=== PATIENT | male | born 1945 | race Caucasian/White ===

== ENCOUNTER 2022-12-20 09:13 | Day surgery (SDC) | payer MEDICARE, OTHER ==
--- NOTE | 2022-12-19 13:46 | HP ---
DATE OF SURGERY: 12/20/2022 HISTORY OF PRESENT ILLNESS: The patient is a 77-year-old male who presents with complaints of a right inguinal hernia. He states he seen a bulge and it hurts in that location. It does look incarcerated and tender on exam today. He does have some lower extremity edema and some lower pelvis edema. PAST MEDICAL HISTORY: Atrial fibrillation, hypertension, cirrhosis, kidney disease, prostate cancer, hernia. PAST SURGICAL HISTORY: Appendectomy. Prostatectomy. Pacemaker/defibrillator. ALLERGIES: NKDA. ADHESIVE TAPE. MEDICATIONS: Eliquis, bumetanide, amlodipine, Lasix, lisinopril, Tamsulosin, atorvastatin, Xifaxan. FAMILY HISTORY: Esophageal cancer. SOCIAL HISTORY: Former smoker. REVIEW OF SYSTEMS: CONSTITUTIONAL: Denies fever or chills. CHEST: Denies shortness of breath. CVS: Denies chest pain. ABDOMEN: Denies abdominal pain. PHYSICAL EXAMINATION: GENERAL: No acute distress. CHEST: Nonlabored. No shortness of breath. CVS: Regular rate and rhythm. ABDOMEN: Soft. IMPRESSION: Moderately enlarged right inguinal hernia. PLAN: Right inguinal hernia repair with mesh with Dr. Nikhil Minor. As dictated by Anna Saez NP.
[~2022-12-20 09:13] MED LIST: Sensorcaine 0.25% 10 ML ONE
[2022-12-20] MEDS ORDERED: EXPAREL 133 MG/10 ML VIAL IJ ONE (09:14)
[2022-12-20] MEDS ORDERED: Lactated Ringers 1,000 ML IV ONE (09:42)
[2022-12-20] MEDS ORDERED: CEFAZOLIN 2 GM-D5W BAG** 2 GM/50 ML ML IV ONE (09:42)
[2022-12-20] MEDS ORDERED: Lactated Ringers 1,000 ML IV SCH (10:00)
[2022-12-20] MEDS ORDERED: CEFAZOLIN 2 GM-D5W BAG** 2 GM/50 ML ML IV SCH (10:00)
[2022-12-20 10:59] LABS: ALBUMIN 2.8 g/dL (3.5-5.0); ALKALINE PHOSPHATASE 156 U/L (38-126); ANION GAP 3.3 MEQ/L (5-15); CHLORIDE 111 mmol/L (98-107); Calcium 8.8 mg/dL (8.4-10.2); Carbon Dioxide 26 mmol/L (22-30); Creatinine 1 1.23 mg/dL (0.66-1.25); EST GLOMERULAR FILTRATION RATE > 60.0 ML/MIN; Glucose 89 mg/dL (74-106); SGOT/AST 56 U/L (17-59); SGPT/ALT 22 U/L (0-50); SODIUM 135 mmol/L (137-145)
[2022-12-20] MEDS ORDERED: Xylocaine-Mpf 2% 5 Ml Vial ONE (12:01)
[2022-12-20] MEDS ORDERED: Amidate 20 MG/10 ML IV ONE (12:01)
[2022-12-20] MEDS ORDERED: Quelicin Fliptop 200 MG/10 ML ONE (12:01)
[2022-12-20] MEDS ORDERED: Zofran 4 MG/2 ML VIAL ONE (12:01)
[2022-12-20] MEDS ORDERED: SUBLIMAZE 100 MCG/2 ML ONE ×2 (12:02→13:38)
[2022-12-20] MEDS ORDERED: OFIRMEV 100 ML IV ONE (12:17)
[2022-12-20] MEDS ORDERED: Pre-Attached Lta Kit TP ONE (12:17)
[2022-12-20] MEDS ORDERED: Sensorcaine 0.25% 10 ML ONE (12:17)
[2022-12-20] MEDS ORDERED: Ephedrine Sulfate 50 MG/ML ONE (12:43)
[2022-12-20] MEDS ORDERED: DEXMEDETOMIDINE 80 MCG/20ML-NS IV ONE (12:58)
--- NOTE | 2022-12-20 14:53 | OP ---
SURGERY DATE/TIME: 12/20/2022 1221 PREOPERATIVE DIAGNOSIS: Right inguinal hernia. POSTOPERATIVE DIAGNOSIS: Right inguinal hernia. PROCEDURE: Right inguinal herniorrhaphy primary open. No mesh. SURGEON: Nikhil Minor M.D. ANESTHESIA: General. COMPLICATIONS: None. CONDITION: Stable. INDICATION: A patient with symptomatic hernia, large bulge right inguinal. DESCRIPTION OF PROCEDURE: Taken to surgery. Routine prep and drape. Time out performed. Curvilinear incision. 0.25% Marcaine infiltrated. External oblique opened. Cord skeletonized. There is a large sac measuring up to 2 inches and extended down to scrotum. It was peeled off of the testicle. It was peeled off the vas and vessels. Back at the internal ring clamp, it was tied. Internal ring closed with figure-of-8 suture #0 Prolene, this looked very well and hernia basically looked repaired. There was a little reinforcement down at the Best's ligament area. The cord was laid back in natural position. External oblique closed with 0 Vicryl. Bj fascia closed with 3-0 Vicryl. Skin closed with 4-0 Vicryl. Steri-Strips applied. Sterile dressing applied. The patient tolerated the procedure satisfactorily.
[2022-12-20 15:12] VITALS: BP 114/47; PULSE 60; O2SAT 92
[2022-12-20] MEDS ORDERED: NORCO 5/325 MG PO PRN (15:13)
== END 2022-12-20 15:40 ==
LOC: SDC 09:13
PROVIDERS: ATTEND Surgery
DX: K40.90 Unilateral inguinal hernia, without obstruction or gangrene, not specified as recurrent (principal); Z85.46 Personal history of malignant neoplasm of prostate
CPT/HCPCS: 36415; 64486; 76937; 76942; 80053; 99100; J0330; J0690; J2405; J3010; A9270-GY

== ENCOUNTER 2023-01-21 02:42 | Emergency (ER) | payer MEDICARE, OTHER ==
[2023-01-21 03:21] LABS: Absolute Neutrophil Ct (ANC) 6.33 x10^3/uL (1.4-6.9); BASOPHIL % 0.8 % (0.0-0.4); Basophil (Absolute #) 0.08 x10^3/uL (0-0.4); Eosinophil % 2.5 % (0.00-5.0); Eosinophil (Absolute #) 0.24 x10^3/uL (0-0.5); Hematocrit 35.7 % (42-50); Hemoglobin 11.9 g/dL (12.5-18.0); IMMATURE GRAN # 0.02 x10^3u/L (0.00-0.03); IMMATURE GRAN % 0.2 % (0.00-0.4); Lymphocyte (Absolute #) 1.82 x10^3/uL (1.0-4.6); Lymphocytes % 18.7 % (24.0-44.0); Mean Cell Volume 99.4 fL (78-100); Mean Corpuscular Hemoglobin 33.1 pg (26-32); Mean Corpuscular Hgb Concent. 33.3 g/dL (32-36); Mean Platelet Volume 10.3 fL (7.5-11.0); Monocyte (Absolute #) 1.26 x10^3/uL (0.0-1.3); Monocytes % 12.9 % (0.0-12.0); Neutrophil % 64.9 % (36.0-66.0); Platelet Count 203 x10^3/uL (150-450); Red Blood Count 3.59 x10^6/uL (4.1-5.6); White Blood Count 9.8 x10^3/uL (4.0-10.5)
--- NOTE | 2023-01-21 03:33 | ERPHSYRPT ---
- History of Present Illness Source: patient, EMS Exam Limitations: no limitations, other (Limited and poor snf history) Patient Subjective Stated Complaint: Pt reports he started having some swelling approx one week ago and it has continuously worsened. Denies any shortness of breath or pain. Triage Nursing Assessment: Pt ambulated from EMS to ED cot with assistance x2 without difficulty. Alert and oriented x3. No apparent respiratory distress. Skin w/p/d. Bilateral lower extremity edema all the way up bilateral upper legs +4 pitting edema. Abdomen firm, round, nontender with pitting edema. Bowel sounds hypoactive in all quads. Bilateral flank firm, pitting edema. No seeping observed at time of triage. Crackles throughout bilateral lungs. Right inguinal incision from previous surgery with steri strips falling off, incision dry and intact without any drainage or redness. Physician History: 77 yo wm from a local snf w lower extremity edema x 10 days. Pt denies dyspnea/chest pain/PND/orthopnea/fever/cough/melena/hematochezia. He entered the snf for rehab after R inguinal hernia surgery in December. Pt states that he is having good BM's and ambulates w a walker. He is a full code. Timing/Duration: other (10 days) Severity: moderate Modifying Factors: Improves With: nothing Associated Symptoms: denies symptoms Allergies/Adverse Reactions: adhesive tape Allergy (Verified 12/20/22 09:59) solifenacin [From Vesicare] Allergy (Verified 01/21/23 02:55) Home Medications: Amlodipine Besylate [Norvasc] 10 mg PO DAILY 11/29/22 [History] Apixaban [Eliquis 5 mg Tablet] 5 mg PO BID 11/29/22 [History] Atorvastatin Calcium [Lipitor] 10 mg PO DAILY 11/29/22 [History] Bumetanide 1 mg [Bumex 1 mg] 2 mg PO DAILY 11/29/22 [History] Lisinopril 5 mg [Zestril 5 MG] 5 mg PO DAILY 11/29/22 [History] Tamsulosin HCl 0.4 mg [Flomax 0.4 MG] 0.4 mg PO DAILY 11/29/22 [History] Furosemide 10 mg/ml [Lasix 10 MG/ML ORAL SOLUTION] 4 ml PO DAILY 01/21/23 [History] Hydrocodone/Acetaminophen [Hydrocodone-Acetamin 5-325 mg] 1 tab PO Q4H 01/21/23 [History] Melatonin 10 mg PO DAILY 01/21/23 [History] Hx Tetanus, Diphtheria Vaccination/Date Given: (unknown) Hx Influenza Vaccination/Date Given: Yes Hx Pneumococcal Vaccination/Date Given: (unknown) Travel Risk - International Travel Have you traveled outside of the country in past 3 weeks: No - Coronavirus Screening Are you exhibiting any of the following symptoms?: No Close contact with a COVID-19 positive Pt in past 14-21 Days: No - Vaccine Status Have you recieved a Covid-19 vaccination: Yes Wreath Machine Tender: Moderna - Vaccination Dates Date of 2cond Vaccination (if applicable): 02/02/2021 - Review of Systems Constitutional: No Symptoms Eyes: No Symptoms Ears, Nose, & Throat: No Symptoms Respiratory: No Symptoms Cardiac: No Symptoms Abdominal/Gastrointestinal: No Symptoms Genitourinary Symptoms: No Symptoms Skin: No Symptoms Neurological: No Symptoms Psychological: No Symptoms Endocrine: No Symptoms Hematologic/Lymphatic: No Symptoms Immunological/Allergic: No Symptoms - Past Medical History Pertinent Past Medical History: Yes Neurological History: No Pertinent History ENT History: No Pertinent History Cardiac History: Arrhythmia, Congestive Heart Failure, Hypertension Respiratory History: CHF, Other Endocrine Medical History: No Pertinent History Musculoskeletal History: Other GI Medical History: Cirrhosis History: Renal Disease Psycho-Social History: No Pertinent History Male Reproductive Disorders: Prostate Cancer Other Medical History: R KNEE ARTHROSCOPY, A-FIB - Past Surgical History Past Surgical History: Yes Neuro Surgical History: No Pertinent History Cardiac: Pacemaker Respiratory: No Pertinent History Gastrointestinal: Appendectomy Genitourinary: No Pertinent History Musculoskeletal: No Pertinent History Male Surgical History: Prostate Surgery - Social History Smoking Status: Former smoker How long have you smoked: 50 years Exposure to second hand smoke: No Drug Use: none Patient Lives Alone: No ([facility]) Significant Family History: no pertinent family hx - Nursing Vital Signs Nursing Vital Signs: Initial Vital Signs Temperature 98.7 F 01/21/23 02:42 Pulse Rate 64 01/21/23 02:42 Respiratory Rate 24 01/21/23 02:42 Blood Pressure 105/45 01/21/23 02:42 O2 Sat by Pulse Oximetry 95 01/21/23 02:42 Pain Scale Pain Intensity 0 WNL - Physical Exam General Appearance: no apparent distress Eye Exam: PERRL/EOMI, eyes nml inspection Ears, Nose, Throat Exam: normal ENT inspection, TMs normal, pharynx normal, moist mucous membranes Neck Exam: normal inspection, non-tender, supple, full range of motion, No meningismus, No Brudzinski, No Kernig's Respiratory Exam: airway intact, diminished breath sounds (Decreased breath sound L base), No respiratory distress Cardiovascular Exam: other (Paced) Gastrointestinal/Abdomen Exam: soft, normal bowel sounds, No tenderness Back Exam: normal inspection, normal range of motion Extremity Exam: swelling (2+ lower extremity edema) Neurologic Exam: alert, oriented x 3, cooperative, international travel consultant II-XII nml as tested, normal mood/affect, sensation nml Skin Exam: normal color, warm, dry Lymphatic Exam: No adenopathy SpO2 Interpretation: normal SpO2: 95 O2 Delivery: Room Air - Course Nursing assessment & vital signs reviewed: Yes EKG Interpreted by Me: RATE (Rate 64/Afib/PVC's/IVCD/No acute ST segment changes) - CT Exams Chest CT Interpretation: Tele-radiologist Report (B pleural effusions/Anasarc a/ascites) Ordered Tests: Active Orders 24 hr Category Date Time Status EKG-ER Only STAT Care 01/21/23 03:05 Active CHEST 1 VIEW (PORTABLE) Stat Exams 01/21/23 03:05 Taken CHEST WITHOUT CONTRAST [CT] Stat Exams 01/21/23 03:36 Taken CBC W DIFF Stat Lab 01/21/23 03:18 Completed CMP Stat Lab 01/21/23 03:18 Completed NT PRO BNPII Stat Lab 01/21/23 03:18 Completed PROTIME WITH INR Stat Lab 01/21/23 03:18 Completed PTT Stat Lab 01/21/23 03:18 Completed TROPONIN Q4H Lab 01/21/23 03:18 Completed TROPONIN Q4H Lab 01/21/23 06:44 Received TROPONIN Q4H Lab 01/21/23 11:15 Ordered Medication Summary Discontinued Medications Generic Name Dose Route Start Last Admin Trade Name Freq PRN Reason Stop Dose Admin Furosemide 60 mg 01/21/23 05:28 02/20/23 05:33 Furosemide 40 Mg/4 Ml Vial IV 01/21/23 05:29 60 mg STAT ONE Administration Furosemide Confirm 01/21/23 05:32 Furosemide 40 Mg/4 Ml Vial Administered 01/21/23 05:33 Dose 80 mg .ROUTE .STK-MED ONE Lab/Rad Data: Laboratory Result Diagrams 01/21/23 03:18 01/21/23 03:18 Laboratory Results 01/21/23 01/21/23 01/21/23 Range/Units Unknown 03:18 03:18 WBC (4.0-10.5) x10^3/uL RBC (4.1-5.6) x10^6/uL Hgb (12.5-18.0) g/dL Hct (42-50) % MCV (78-100) fL MCH (26-32) pg MCHC (32-36) g/dL RDW (11.5-14.0) % Plt Count (150-450) x10^3/uL MPV (7.5-11.0) fL Gran % (36.0-66.0) % Immature Gran % (Auto) (0.00-0.4) % Nucleat RBC Rel Count (0.00-0.1) % Eos # (Auto) (0-0.5) x10^3/uL Immature Gran # (Auto) (0.00-0.03) x10^3u/L Absolute Lymphs (auto) (1.0-4.6) x10^3/uL Absolute Monos (auto) (0.0-1.3) x10^3/uL Absolute Nucleated RBC (0.00-0.01) x10^3u/L Lymphocytes % (24.0-44.0) % Monocytes % (0.0-12.0) % Eosinophils % (0.00-5.0) % Basophils % (0.0-0.4) % Absolute Granulocytes (1.4-6.9) x10^3/uL Basophils # (0-0.4) x10^3/uL PT 15.8 H (9.4-12.5) SECONDS INR 1.55 (0.8-3.0) APTT 37.8 H (25.1-36.5) SECONDS Sodium (137-145) mmol/L Potassium (3.5-5.1) mmol/L Chloride (98-107) mmol/L Carbon Dioxide (22-30) mmol/L Anion Gap (5-15) MEQ/L BUN (9-20) mg/dL Creatinine (0.66-1.25) mg/dL Estimated GFR ML/MIN Glucose (74-106) mg/dL Calcium (8.4-10.2) mg/dL Total Bilirubin (0.2-1.3) mg/dL AST (17-59) U/L ALT (0-50) U/L Alkaline Phosphatase (38-126) U/L Troponin I < 0.012 (0.000-0.034) ng/mL NT-Pro-B Natriuret Pep 3560 (<300) pg/mL Serum Total Protein (6.3-8.2) g/dL Albumin (3.5-5.0) g/dL Influenza Type A Ag NEGATIVE (NEGATIVE) Influenza Type B Ag NEGATIVE (NEGATIVE) RSV (PCR) NEGATIVE (Negative) SARS-CoV-2 (PCR) NEGATIVE (NEGATIVE) 01/21/23 01/21/23 Range/Units 03:18 03:18 WBC 9.8 (4.0-10.5) x10^3/uL RBC 3.59 L (4.1-5.6) x10^6/uL Hgb 11.9 L (12.5-18.0) g/dL Hct 35.7 L (42-50) % MCV 99.4 (78-100) fL MCH 33.1 H (26-32) pg MCHC 33.3 (32-36) g/dL RDW 15.0 H (11.5-14.0) % Plt Count 203 (150-450) x10^3/uL MPV 10.3 (7.5-11.0) fL Gran % 64.9 (36.0-66.0) % Immature Gran % (Auto) 0.2 (0.00-0.4) % Nucleat RBC Rel Count 0.0 (0.00-0.1) % Eos # (Auto) 0.24 (0-0.5) x10^3/uL Immature Gran # (Auto) 0.02 (0.00-0.03) x10^3u/L Absolute Lymphs (auto) 1.82 (1.0-4.6) x10^3/uL Absolute Monos (auto) 1.26 (0.0-1.3) x10^3/uL Absolute Nucleated RBC 0.00 (0.00-0.01) x10^3u/L Lymphocytes % 18.7 L (24.0-44.0) % Monocytes % 12.9 H (0.0-12.0) % Eosinophils % 2.5 (0.00-5.0) % Basophils % 0.8 (0.0-0.4) % Absolute Granulocytes 6.33 (1.4-6.9) x10^3/uL Basophils # 0.08 (0-0.4) x10^3/uL PT (9.4-12.5) SECONDS INR (0.8-3.0) APTT (25.1-36.5) SECONDS Sodium 137 (137-145) mmol/L Potassium 3.9 (3.5-5.1) mmol/L Chloride 104 (98-107) mmol/L Carbon Dioxide 26 (22-30) mmol/L Anion Gap 10.8 (5-15) MEQ/L BUN 49 H (9-20) mg/dL Creatinine 3.44 H (0.66-1.25) mg/dL Estimated GFR 18.5 ML/MIN Glucose 103 (74-106) mg/dL Calcium 8.1 L (8.4-10.2) mg/dL Total Bilirubin 1.10 (0.2-1.3) mg/dL AST 22 (17-59) U/L ALT 9 (0-50) U/L Alkaline Phosphatase 125 (38-126) U/L Troponin I (0.000-0.034) ng/mL NT-Pro-B Natriuret Pep (<300) pg/mL Serum Total Protein 5.5 L (6.3-8.2) g/dL Albumin 2.3 L (3.5-5.0) g/dL Influenza Type A Ag (NEGATIVE) Influenza Type B Ag (NEGATIVE) RSV (PCR) (Negative) SARS-CoV-2 (PCR) (NEGATIVE) - Progress Progress Note: 01/21/23 04:07 Nursing note and vital signs reviewed Pt is a full code half-way records reviewed Lab results reviewed and shared w pt CXR interpreted per ER physician Spoke w Dr. Ta, aware of current problems which are chronic and wants to send back to the [facility] Pt[place] MAR from [facility] reviewed 60mg IV Lasix w 100ml of urine output Pt in NAD w stable vital signs during entire stay No food or housing insecurities noted 01/21/23 06:52 01/21/23 06:56 Counseled pt/family regarding: lab results, diagnosis, rad results - Departure Departure Disposition: Extended Care Facility Clinical Impression: Hypoalbuminemia, Anasarca, Ascites, Pleural effusion Condition: Stable Critical Care Time: No Referrals: KELECHI LIM [Primary Care Provider] - Follow up/PCP as directed Instructions: Dependent Edema (DC), Fluid in the Belly (Ascites) (DC) Additional Instructions: Have pt follow up with nephrology and cardiology [facility] for now Return to ER as needed
[2023-01-21 03:41] LABS: ALBUMIN 2.3 g/dL (3.5-5.0); ANION GAP 10.8 MEQ/L (5-15); BILIRUBIN,TOTAL 1.1 mg/dL (0.2-1.3); Calcium 8.1 mg/dL (8.4-10.2); Creatinine 1 3.44 mg/dL (0.66-1.25); EST GLOMERULAR FILTRATION RATE 18.5 ML/MIN; Potassium 3.9 mmol/L (3.5-5.1); Total Protein 5.5 g/dL (6.3-8.2)
[2023-01-21 03:42] LABS: INR 1.55 (0.8-3.0); PROTIME 15.8 SECONDS (9.4-12.5); PTT 37.8 SECONDS (25.1-36.5)
[2023-01-21 03:49] LABS: NT PRO BNPII 3560 pg/mL (<300); TROPONIN < 0.012 ng/mL (0.000-0.034)
[2023-01-21 05:04] VITALS: PULSE 61
[2023-01-21] MEDS ORDERED: Lasix 40 MG/4 ML IV ONE (05:28)
[2023-01-21] MEDS ORDERED: Lasix 40 MG/4 ML ONE (05:32)
[2023-01-21 06:36] LABS: INFLUENZA A NEGATIVE (NEGATIVE); INFLUENZA B NEGATIVE (NEGATIVE); RESPIRATORY SYNCTIAL VIRUS NEGATIVE (Negative); SARS-CoV-2 Xpert Express NEGATIVE (NEGATIVE)
[2023-01-21 06:57] VITALS: O2SAT 95
[2023-01-21 07:03] VITALS: BP 95/49
--- NOTE | 2023-01-21 08:49 | XRAY ---
Indication: Swelling. Anasarca. Comparison: April 18, 2017 Portable chest demonstrates new CT proven moderate bibasilar pleural effusions/atelectasis. Worsening bilateral calcified pleural plaquing. Heart not enlarged with new left pacemaker. Bony thorax intact.
--- NOTE | 2023-01-21 08:49 | XRAY ---
Indication: Abnormal chest x-ray. Cirrhosis. Lower chest swelling. Multiple contiguous axial images obtained through the chest without contrast. Comparison: September 05, 2022 Lungs demonstrate new moderate bilateral pleural effusions with mild bibasilar compressive atelectasis. There remains diffuse scattered bilateral calcified pleural plaquing. Heart not enlarged again with left pacemaker. Aorta remains mildly arteriosclerotic. No pathologic mediastinal lymphadenopathy. Bony thorax intact again with osteopenia and mild degenerative changes throughout the spine. New diffuse anasarca. Limited upper abdomen demonstrates cirrhotic liver with new large incompletely visualized ascites. Impression: 1. Cirrhotic liver with new incompletely visualized ascites and diffuse anasarca. New bilateral pleural effusions without cardiomegaly may be related. 2. Again chronic findings including bilateral calcified pleural plaquing, arteriosclerotic disease, and chronic bony findings. Comment: Preliminary interpretation made by [facility]. No critical discrepancy.
== END 2023-01-21 08:00 | disposition home or self-care (01) ==
LOC: ED 02:42
DX: E88.09 Other disorders of plasma-protein metabolism, not elsewhere classified (principal); R18.8 Other ascites; J90 Pleural effusion, not elsewhere classified; I11.0 Hypertensive heart disease with heart failure; I50.9 Heart failure, unspecified; Z79.01 Long term (current) use of anticoagulants; Z79.891 Long term (current) use of opiate analgesic; Z79.899 Other long term (current) drug therapy
CPT/HCPCS: 0241U; 36000; 36415; 71045; 71250; 80053; 83880; 84484; 85025; 85610; 85730; 93005; 96374; 99284; J1940

== ENCOUNTER 2023-01-21 17:17 | Observation (INO) | payer MEDICARE, OTHER ==
[2023-01-21] MEDS ORDERED: XYLOCAINE 2% Uro-Jet ONE (17:23)
--- NOTE | 2023-01-21 17:23 | ERPHSYRPT ---
- History of Present Illness Time Seen by Provider: 01/21/23 17:20 Source: patient, EMS, [facility]dc records, old records Exam Limitations: no limitations Physician History: This is a 77-year-old white male patient of Dr. Serge Bates who was living at [facility]. Patient was seen in this emergency department earlier today and was sent home on Bumex and Lasix diuretic because of bilateral lower extremity swelling. Work-up was performed. At the fdc, the patient was not passing urine. The fdc attempted placement of a Wills catheter on 2 different occasions and were unsuccessful. Dr. Serge Bates was contacted and she told the nursing staff to attempt a Wills catheter and if they were unsuccessful or if there was no urine output after placing the Wills catheter, to send the patient to the emergency department for further evaluation. Patient denies pain of any kind. He has no abdominal pain, he denies chest pain, he denies shortness of breath. Patient has a history of hypertension and is on Eliquis for atrial fibrillation he has a history of prostate cancer and is status post prostatectomy in the past. He has history of CHF and hyperlipidemia. He is also on Flomax medication. Timing/Duration: today Activites at Onset: none Quality: other (Increasing swelling of the penile foreskin and bilateral lower extremities) Severity of Pain-Max: none Severity of Pain-Current: none Modifying Factors: Improves With: nothing Associated Symptoms: other (Unable to pass urine on his own) Prior abdominal problems: other (Prostatectomy in the past) Sexual intercourse history: non-contributory Allergies/Adverse Reactions: adhesive tape Allergy (Verified 01/21/23 17:26) solifenacin [From Vesicare] Allergy (Verified 01/21/23 17:26) Home Medications: Amlodipine Besylate [Norvasc] 10 mg PO DAILY 11/29/22 [History] Apixaban [Eliquis 5 mg Tablet] 5 mg PO BID 11/29/22 [History] Atorvastatin Calcium [Lipitor] 10 mg PO DAILY 11/29/22 [History] Bumetanide 1 mg [Bumex 1 mg] 2 mg PO DAILY 11/29/22 [History] Lisinopril 5 mg [Zestril 5 MG] 5 mg PO DAILY 11/29/22 [History] Tamsulosin HCl 0.4 mg [Flomax 0.4 MG] 0.4 mg PO DAILY 11/29/22 [History] Furosemide 10 mg/ml [Lasix 10 MG/ML ORAL SOLUTION] 4 ml PO DAILY 01/21/23 [History] Hydrocodone/Acetaminophen [Hydrocodone-Acetamin 5-325 mg] 1 tab PO Q4H 01/21/23 [History] Melatonin 10 mg PO DAILY 01/21/23 [History] Hx Tetanus, Diphtheria Vaccination/Date Given: (unknown) Hx Influenza Vaccination/Date Given: Yes Hx Pneumococcal Vaccination/Date Given: (unknown) Travel Risk - International Travel Have you traveled outside of the country in past 3 weeks: No - Coronavirus Screening Are you exhibiting any of the following symptoms?: No Close contact with a COVID-19 positive Pt in past 14-21 Days: No - Vaccine Status Have you recieved a Covid-19 vaccination: Yes 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[employer] - Vaccination Dates Date of 2cond Vaccination (if applicable): 02/02/2021 - Past Medical History Pertinent Past Medical History: Yes Neurological History: No Pertinent History ENT History: No Pertinent History Cardiac History: Arrhythmia, Congestive Heart Failure, Hypertension Respiratory History: CHF, Other Endocrine Medical History: No Pertinent History Musculoskeletal History: Other GI Medical History: Cirrhosis History: Renal Disease Psycho-Social History: No Pertinent History Male Reproductive Disorders: Prostate Cancer Other Medical History: R KNEE ARTHROSCOPY, A-FIB - Past Surgical History Past Surgical History: Yes Neuro Surgical History: No Pertinent History Cardiac: Pacemaker Respiratory: No Pertinent History Gastrointestinal: Appendectomy Genitourinary: No Pertinent History Musculoskeletal: No Pertinent History Male Surgical History: Prostate Surgery - Social History Smoking Status: Former smoker How long have you smoked: 50 years Exposure to second hand smoke: No Drug Use: none Patient Lives Alone: No ([facility]) Significant Family History: no pertinent family hx - Review of Systems Constitutional: No Symptoms Eyes: No Symptoms Ears, Nose, & Throat: No Symptoms Respiratory: No Symptoms Cardiac: No Symptoms Abdominal/Gastrointestinal: No Symptoms Genitourinary Symptoms: Urinary Retention, Other (Penile foreskin swelling) Musculoskeletal: No Symptoms Skin: No Symptoms Neurological: No Symptoms Psychological: No Symptoms Endocrine: No Symptoms Hematologic/Lymphatic: No Symptoms, Easy Bruising - Nursing Vital Signs Nursing Vital Signs: Initial Vital Signs Temperature 97.4 F 01/21/23 17:21 Pulse Rate 74 01/21/23 17:21 Respiratory Rate 18 01/21/23 17:21 Blood Pressure 98/36 01/21/23 17:21 O2 Sat by Pulse Oximetry 96 01/21/23 17:21 Pain Scale Pain Intensity 0 - Physical Exam General Appearance: no apparent distress, alert Eye Exam: PERRL/EOMI, eyes nml inspection Ears, Nose, Throat Exam: normal ENT inspection, moist mucous membranes Neck Exam: normal inspection, non-tender, supple, full range of motion Respiratory Exam: normal breath sounds, lungs clear, airway intact, No chest tenderness, No respiratory distress Cardiovascular Exam: regular rate/rhythm, normal heart sounds, normal peripheral pulses, edema (Bilateral lower extremity edema from feet to thighs) Gastrointestinal/Abdomen Exam: soft, normal bowel sounds, No tenderness Male Genital Exam: circumcised (With swelling that is significant and retracted penis and the meatus is not readily visualized) Back Exam: normal inspection, normal range of motion, No CVA tenderness, No vertebral tenderness Extremity Exam: normal range of motion, pelvis stable, pedal edema Neurologic Exam: alert (From feet to bilateral thighs), oriented x 3, cooperative, reconnaissance man II-XII nml as tested, normal mood/affect Skin Exam: normal color, warm, dry Lymphatic Exam: No adenopathy SpO2 Interpretation: normal O2 Delivery: Room Air Procedures - Additional Procedures Progress: Wills catheter was attempted by the nursing staff. They then asked me to evaluate this patient he has significant swelling of the remaining foreskin and the meatus is not visualized. Several attempts were made prior to my evaluation. They were unsuccessful. Next we anesthetized the remaining foreskin with 7 cc total of 1% lidocaine plain. This was injected into the foreskin. We then were able to use hemostats to retract the foreskin and the meatus was visualized. We passed a 12 inch Wills catheter which had urine flow. Next, we did pass a 16 coud catheter. There were no complications. The patient taught the procedure well. Ordered Tests: Active Orders 24 hr Category Date Time Status IV Insertion STAT Care 01/21/23 18:32 Active ABDOMEN AND PELVIS W/0 CONTRAS [CT] Stat Exams 01/21/23 18:34 Taken CBC W DIFF Stat Lab 01/21/23 19:05 Completed CMP Stat Lab 01/21/23 19:05 Completed CULTURE,URINE Stat Lab 01/21/23 19:19 Received NT PRO BNPII Stat Lab 01/21/23 19:05 Completed UA W/RFX UR CULTURE Stat Lab 01/21/23 19:19 Completed Transfer Order Routine Transfer 01/21/23 Ordered Medication Summary Discontinued Medications Generic Name Dose Route Start Last Admin Trade Name Michael PRN Reason Stop Dose Admin Lidocaine HCl Confirm 01/21/23 17:23 Lidocaine Hcl 20 Mg/Ml Jelly Uro-Jet Administered 01/21/23 17:24 Dose 200 mg .ROUTE .STK-MED ONE Lidocaine HCl 200 mg 01/21/23 17:41 Lidocaine Hcl 20 Mg/Ml Jelly Uro-Jet TOP 01/21/23 17:42 STAT ONE Lab/Rad Data: Laboratory Result Diagrams 01/21/23 19:05 01/21/23 19:05 Laboratory Results 01/21/23 01/21/23 01/21/23 Range/Units 19:19 19:05 19:05 WBC 9.1 (4.0-10.5) x10^3/uL RBC 3.37 L (4.1-5.6) x10^6/uL Hgb 11.3 L (12.5-18.0) g/dL Hct 34.1 L (42-50) % MCV 101.2 H (78-100) fL MCH 33.5 H (26-32) pg MCHC 33.1 (32-36) g/dL RDW 15.1 H (11.5-14.0) % Plt Count 190 (150-450) x10^3/uL MPV 10.3 (7.5-11.0) fL Gran % 74.2 H (36.0-66.0) % Immature Gran % (Auto) 0.2 (0.00-0.4) % Nucleat RBC Rel Count 0.0 (0.00-0.1) % Eos # (Auto) 0.11 (0-0.5) x10^3/uL Immature Gran # (Auto) 0.02 (0.00-0.03) x10^3u/L Absolute Lymphs (auto) 1.06 (1.0-4.6) x10^3/uL Absolute Monos (auto) 1.10 (0.0-1.3) x10^3/uL Absolute Nucleated RBC 0.00 (0.00-0.01) x10^3u/L Lymphocytes % 11.6 L (24.0-44.0) % Monocytes % 12.0 (0.0-12.0) % Eosinophils % 1.2 (0.00-5.0) % Basophils % 0.8 (0.0-0.4) % Absolute Granulocytes 6.78 (1.4-6.9) x10^3/uL Basophils # 0.07 (0-0.4) x10^3/uL Sodium 138 (137-145) mmol/L Potassium 4.8 D (3.5-5.1) mmol/L Chloride 105 (98-107) mmol/L Carbon Dioxide 28 (22-30) mmol/L Anion Gap 10.4 (5-15) MEQ/L BUN 52 H (9-20) mg/dL Creatinine 3.66 H (0.66-1.25) mg/dL Estimated GFR 17.2 ML/MIN Glucose 111 H (74-106) mg/dL Calcium 8.2 L (8.4-10.2) mg/dL Total Bilirubin 1.10 (0.2-1.3) mg/dL AST 24 (17-59) U/L ALT 13 (0-50) U/L Alkaline Phosphatase 124 (38-126) U/L NT-Pro-B Natriuret Pep 4120 (<300) pg/mL Serum Total Protein 5.7 L (6.3-8.2) g/dL Albumin 2.4 L (3.5-5.0) g/dL Urine Color Yellow (Yellow) Urine Appearance Cloudy A (Clear) Urine pH 5.0 (4.6-8.0) Ur Specific [place] 1.015 (1.005-1.030) Urine Protein Trace A (Negative) Urine Glucose (UA) Negative (Negative) mg/dL Urine Ketones Negative (Negative) Urine Blood Large A (Negative) Urine Nitrite Negative (Negative) Urine Bilirubin Negative (Negative) Urine Urobilinogen 1.0 A (0.2) mg/dL Ur Leukocyte Esterase Negative (Negative) U Hyaline Cast (Auto) 26-50 A (0-2) /LPF Urine Microscopic RBC >100 A (0-5) /HPF Urine Microscopic WBC 3-5 (0-5) /HPF Ur Epithelial Cells Rare (None Seen) /HPF Urine Bacteria None Seen (None Seen) /HPF Urine Culture Reflexed ORDERED SEPARATELY (NO) - Progress Progress: improved Progress Note: 01/21/23 20:52 CT scan of the abdomen and pelvis without contrast shows cirrhotic liver with massive ascites and anasarca. 01/21/23 20:55 This patient has a medical issue that is of high complexity. Is based on the patient's medical history, complaint, history present illness, physical examination. I obtained additional information from the paramedics as well as the [facility] staff prior to patient's arrival to the emergency department. I have reviewed old notes from his recent visit into the hospital. He spent a significant amount of time placing a Wills catheter in this patient who is extremely swollen and that penis and genital area. Based on the above I ordered lab work, sent a urinalysis and performed a CAT scan of the abdomen pelvis. I reviewed the results of the studies. I spoke with the hospitalist on-call, Dr. Santos, and together we formulated a plan of placing the patient in observation and obtaining an ultrasound-guided paracentesis tomorrow morning by radiology. I discussed with the patient. Discussed with : Donita Counseled pt/family regarding: lab results, diagnosis, rad results Medical Desision Making - Independent Historian Additional History obtained from: [facility] nurse, Lead Man Over All Dies In [employer]/EMT - External Record(s) Reviewed Records reviewed as a part of evaluation & management: [facility] - Discussion of managment Care discussed with:: on-call "doc" Reviewed:: Test results, Need for additional workup Agreed on:: Treatment plan, place in obs Will see patient: in hospital - Diagnostic Testing Diagnostic test were ordered, analyzed, and reviewed by me: Yes - Risk of complications Low Risk: Low risk of morbidity from additional dx testing or treatment - Departure Departure Disposition: Observation Clinical Impression: Urinary retention, Ascites, Peripheral edema, Anasarca Condition: Fair Critical Care Time: No
[2023-01-21] MEDS: XYLOCAINE 2% Uro-Jet TOP ONE (17:35)
[2023-01-21 19:11] LABS: Absolute Neutrophil Ct (ANC) 6.78 x10^3/uL (1.4-6.9); BASOPHIL % 0.8 % (0.0-0.4); Basophil (Absolute #) 0.07 x10^3/uL (0-0.4); Eosinophil % 1.2 % (0.00-5.0); Eosinophil (Absolute #) 0.11 x10^3/uL (0-0.5); Hematocrit 34.1 % (42-50); Hemoglobin 11.3 g/dL (12.5-18.0); IMMATURE GRAN # 0.02 x10^3u/L (0.00-0.03); IMMATURE GRAN % 0.2 % (0.00-0.4); Lymphocyte (Absolute #) 1.06 x10^3/uL (1.0-4.6); Lymphocytes % 11.6 % (24.0-44.0); Mean Cell Volume 101.2 fL (78-100); Mean Corpuscular Hemoglobin 33.5 pg (26-32); Mean Corpuscular Hgb Concent. 33.1 g/dL (32-36); Mean Platelet Volume 10.3 fL (7.5-11.0); Neutrophil % 74.2 % (36.0-66.0); Platelet Count 190 x10^3/uL (150-450); Red Blood Count 3.37 x10^6/uL (4.1-5.6); Red Cell Distribution Width 15.1 % (11.5-14.0); White Blood Count 9.1 x10^3/uL (4.0-10.5)
[2023-01-21 19:34] LABS: ALBUMIN 2.4 g/dL (3.5-5.0); ANION GAP 10.4 MEQ/L (5-15); BILIRUBIN,TOTAL 1.1 mg/dL (0.2-1.3); Calcium 8.2 mg/dL (8.4-10.2); Creatinine 1 3.66 mg/dL (0.66-1.25); EST GLOMERULAR FILTRATION RATE 17.2 ML/MIN; Potassium 4.8 mmol/L (3.5-5.1); Total Protein 5.7 g/dL (6.3-8.2)
[2023-01-21 19:51] LABS: Appearance Cloudy (Clear); Bacteria None Seen /HPF (None Seen); Bilirubin Negative (Negative); Blood Large (Negative); Epithelial Cells Rare /HPF (None Seen); Glucose, Urine Negative (Negative); Ketones Negative (Negative); Leukocyte Esterase Negative (Negative); Nitrite Negative (Negative); Protein,Urine Dip Trace (Negative); RBC >100 /HPF (0-5); Specific Gravity 1.015 (1.005-1.030)
[2023-01-21 19:52] LABS: ADD URINE CULTURE? ORDERED SEPARATELY (NO); Hyaline Casts 26-50 /LPF (0-2)
[2023-01-21] MEDS ORDERED: FEVERALL 650 MG PR PRN (21:13)
[2023-01-21] MEDS ORDERED: Zofran 4 MG/2 ML VIAL IV PRN (21:13)
[2023-01-21 21:23] LABS: INR 1.43 (0.8-3.0); PROTIME 15.2 SECONDS (9.4-12.5)
[2023-01-21] MEDS ORDERED: MELATONIN PO PRN ×2 (22:00→22:56)
[2023-01-21] MEDS ORDERED: TYLENOL 325 MG PO PRN (22:27)
[2023-01-21] MEDS ORDERED: Zocor 10MG ONE (22:56)
[2023-01-22] MEDS: XYLOCAINE 2% Uro-Jet TOP ONE (07:16)
[2023-01-22 07:21] VITALS: O2SAT 96
[2023-01-22 07:53] LABS: INR 1.52 (0.8-3.0); PROTIME 16.1 SECONDS (9.4-12.5)
[2023-01-22] MEDS ORDERED: ENOXAPARIN SODIUM SQ ONE (08:35)
--- NOTE | 2023-01-22 08:45 | XRAY ---
Indication: Abdomen distention. Urinary retention. Multiple contiguous axial images obtained through the abdomen pelvis without contrast. Comparison: September 05, 2022. CT chest reported one day earlier. Noncontrasted stomach and bowel loops appear nonobstructed. Again cirrhotic liver with new massive abdominal/pelvic ascites and worsening diffuse anasarca. No free air. Stable left renal cysts and prostatectomy clips. New Wills balloon catheter in situ. Remaining gallbladder, pancreas, spleen, adrenal glands, kidneys, and ureters are unremarkable for noncontrast exam. Again moderate scattered aortoiliac calcifications without AAA. Osseous structures intact again with osteopenia and mild degenerative changes throughout the spine. Impression: 1. Again cirrhotic liver. New massive abdominal/pelvic ascites and worsening diffuse anasarca. 2. Chronic findings including left renal cysts, prostatectomy, arteriosclerotic disease, and chronic bony findings.
--- NOTE | 2023-01-22 09:16 | PCM.HP ---
History of Present Illness - Chief Complaint Chief Complaint: Intra-abdominal ascites History of Present Illness: is a 77 year old male pt of mine from [facility] who was admitted through ER yesterday with anasarca and urinary retention. He was found to have cirrhosis of the liver with ascites and is supposed to have an u/s guided paracentesis; however his PT is elevated so this has been postponed. The pt is a poor historian. He is AAO x 3 this morning (oriented to month, not to day). He has been having increased LE edema including some penile edema. In the office, we tried lasix and bumex without relief, and he was referred to cardiology and nephrology. Echo in Jul 2022 with EF 61%. At baseline, he has stage 3 kidney disease, but today his eGFR is 17.2. His CT abd/pelvis showed continued cirrhosis (compared with Sep 2022) and new/worsening ascites and anasarca. He was noted to have cirrhosis previously and has been seeing GI in [place]. Pt had R inguinal hernia repair last month, and has been recovering at a rehab facility. He had been to ER yesterday morning for increased edema; workup largeley negative and discharged back to rehab facility to continue outpatient workup. He was unable to urinate after that; facility unable to pass freitas catheter, so pt returned to ER. - Review of Systems Cardiac: Edema Genitourinary Symptoms: Urinary Retention All Other Systems: Reviewed and Negative Medications & Allergies Home Medications: Home Medication List Amlodipine Besylate [Norvasc] 10 mg PO DAILY 11/29/22 [History Confirmed 01/21/23] Apixaban [Eliquis 5 mg Tablet] 5 mg PO BID 11/29/22 [History Confirmed 01/21/23] Atorvastatin Calcium [Lipitor] 10 mg PO HS 11/29/22 [History Confirmed 01/21/23] Bumetanide 1 mg [Bumex 1 mg] 2 mg PO DAILY 11/29/22 [History Confirmed 01/21/23] Lisinopril 5 mg [Zestril 5 MG] 5 mg PO DAILY 11/29/22 [History Confirmed 01/21/23] Tamsulosin HCl 0.4 mg [Flomax 0.4 MG] 0.4 mg PO DAILY 11/29/22 [History Confirmed 01/21/23] Hydrocodone/Acetaminophen [Hydrocodone-Acetamin 5-325 mg] 1 tab PO Q4HPRN PRN 01/21/23 [History Confirmed 01/21/23] Melatonin 10 mg PO HS 01/21/23 [History Confirmed 01/21/23] Allergies/Adverse Reactions: Allergies Allergy/AdvReac Type Severity Reaction Status Date / Time adhesive tape Allergy Verified 01/21/23 17:26 solifenacin [From Vesicare] Allergy Verified 01/21/23 17:26 - Past Medical History Past Medical History: Yes Neurological History: No Pertinent History ENT History: No Pertinent History Cardiac History: Arrhythmia, Congestive Heart Failure, Hypertension Respiratory History: CHF, Other Endocrine Medical History: No Pertinent History Musculoskelatal History: Other GI Medical History: Cirrhosis History: Renal Disease Pyscho-Social History: No Pertinent History Male Reproductive Disorders: Prostate Cancer Comment: R KNEE ARTHROSCOPY, A-FIB - Past Surgical History Past Surgical History: Yes Neuro Surgical History: No Pertinent History Cardiac History: Pacemaker Respiratory Surgery: No Pertinent History GI Surgical History: Appendectomy Genitourinary Surgical Hx: No Pertinent History Musculskeletal Surgical Hx: No Pertinent History Male Surgical History: Prostate Surgery - Social History Smoking Status: Former smoker How long have you smoked: 50 years Exposure to second hand smoke: No Alcohol: None Drug Use: none Significant Family History: no pertinent family hx - Physical Exam Vital Signs: Vital Signs - 24 hr Temp Pulse Resp BP Pulse Ox 01/22/23 07:21 97.9 F 60 16 102/49 96 01/22/23 04:00 97.5 F 59 L 16 97/51 93 L 01/21/23 21:00 98.4 F 58 L 20 105/53 94 L 01/21/23 20:18 17 01/21/23 17:21 97.4 F 74 18 98/36 96 General Appearance: no apparent distress, alert Neurologic Exam: oriented x 3, cooperative, normal mood/affect Eye Exam: eyes nml inspection Ears, Nose, Throat Exam: moist mucous membranes Neck Exam: normal inspection Respiratory Exam: normal breath sounds, lungs clear, No crackles/rales, No rhonchi, No wheezing Cardiovascular Exam: normal heart sounds, irregular, No murmur Gastrointestinal/Abdomen Exam: soft, distention (with fluid wave), other (2+ pitting edema in dependent areas), No tenderness Male Genitalia Exam: other (penis with slight blood at urethral meatus; moderate edema of soft tissues) Back Exam: normal inspection, No rash Extremity Exam: pedal edema, swelling (2+ pitting edema bilat entire LE bilat) Skin Exam: normal color, warm, dry, No rash Results - Labs Lab/Micro Results: Lab Results-Last 24 Hours 01/21/23 01/21/23 01/21/23 Range/Units 19:05 19:05 19:19 WBC 9.1 (4.0-10.5) x10^3/uL RBC 3.37 L (4.1-5.6) x10^6/uL Hgb 11.3 L (12.5-18.0) g/dL Hct 34.1 L (42-50) % MCV 101.2 H (78-100) fL MCH 33.5 H (26-32) pg MCHC 33.1 (32-36) g/dL RDW 15.1 H (11.5-14.0) % Plt Count 190 (150-450) x10^3/uL MPV 10.3 (7.5-11.0) fL Gran % 74.2 H (36.0-66.0) % Immature Gran % (Auto) 0.2 (0.00-0.4) % Nucleat RBC Rel Count 0.0 (0.00-0.1) % Eos # (Auto) 0.11 (0-0.5) x10^3/uL Immature Gran # (Auto) 0.02 (0.00-0.03) x10^3u/L Absolute Lymphs (auto) 1.06 (1.0-4.6) x10^3/uL Absolute Monos (auto) 1.10 (0.0-1.3) x10^3/uL Absolute Nucleated RBC 0.00 (0.00-0.01) x10^3u/L Lymphocytes % 11.6 L (24.0-44.0) % Monocytes % 12.0 (0.0-12.0) % Eosinophils % 1.2 (0.00-5.0) % Basophils % 0.8 (0.0-0.4) % Absolute Granulocytes 6.78 (1.4-6.9) x10^3/uL Basophils # 0.07 (0-0.4) x10^3/uL PT (9.4-12.5) SECONDS INR (0.8-3.0) Sodium 138 (137-145) mmol/L Potassium 4.8 D (3.5-5.1) mmol/L Chloride 105 (98-107) mmol/L Carbon Dioxide 28 (22-30) mmol/L Anion Gap 10.4 (5-15) MEQ/L BUN 52 H (9-20) mg/dL Creatinine 3.66 H (0.66-1.25) mg/dL Estimated GFR 17.2 ML/MIN Glucose 111 H (74-106) mg/dL Calcium 8.2 L (8.4-10.2) mg/dL Total Bilirubin 1.10 (0.2-1.3) mg/dL AST 24 (17-59) U/L ALT 13 (0-50) U/L Alkaline Phosphatase 124 (38-126) U/L NT-Pro-B Natriuret Pep 4120 (<300) pg/mL Serum Total Protein 5.7 L (6.3-8.2) g/dL Albumin 2.4 L (3.5-5.0) g/dL Urine Color Yellow (Yellow) Urine Appearance Cloudy A (Clear) Urine pH 5.0 (4.6-8.0) Ur Specific [place] 1.015 (1.005-1.030) Urine Protein Trace A (Negative) Urine Glucose (UA) Negative (Negative) mg/dL Urine Ketones Negative (Negative) Urine Blood Large A (Negative) Urine Nitrite Negative (Negative) Urine Bilirubin Negative (Negative) Urine Urobilinogen 1.0 A (0.2) mg/dL Ur Leukocyte Esterase Negative (Negative) U Hyaline Cast (Auto) 26-50 A (0-2) /LPF Urine Microscopic RBC >100 A (0-5) /HPF Urine Microscopic WBC 3-5 (0-5) /HPF Ur Epithelial Cells Rare (None Seen) /HPF Urine Bacteria None Seen (None Seen) /HPF Urine Culture Reflexed ORDERED SEPARATELY (NO) 01/21/23 01/22/23 01/22/23 Range/Units Unknown 04:52 07:20 WBC (4.0-10.5) x10^3/uL RBC (4.1-5.6) x10^6/uL Hgb (12.5-18.0) g/dL Hct (42-50) % MCV (78-100) fL MCH (26-32) pg MCHC (32-36) g/dL RDW (11.5-14.0) % Plt Count (150-450) x10^3/uL MPV (7.5-11.0) fL Gran % (36.0-66.0) % Immature Gran % (Auto) (0.00-0.4) % Nucleat RBC Rel Count (0.00-0.1) % Eos # (Auto) (0-0.5) x10^3/uL Immature Gran # (Auto) (0.00-0.03) x10^3u/L Absolute Lymphs (auto) (1.0-4.6) x10^3/uL Absolute Monos (auto) (0.0-1.3) x10^3/uL Absolute Nucleated RBC (0.00-0.01) x10^3u/L Lymphocytes % (24.0-44.0) % Monocytes % (0.0-12.0) % Eosinophils % (0.00-5.0) % Basophils % (0.0-0.4) % Absolute Granulocytes (1.4-6.9) x10^3/uL Basophils # (0-0.4) x10^3/uL PT 15.2 H 16.1 H (9.4-12.5) SECONDS INR 1.43 1.52 (0.8-3.0) Sodium (137-145) mmol/L Potassium (3.5-5.1) mmol/L Chloride (98-107) mmol/L Carbon Dioxide (22-30) mmol/L Anion Gap (5-15) MEQ/L BUN (9-20) mg/dL Creatinine (0.66-1.25) mg/dL Estimated GFR ML/MIN Glucose (74-106) mg/dL Calcium (8.4-10.2) mg/dL Total Bilirubin (0.2-1.3) mg/dL AST (17-59) U/L ALT (0-50) U/L Alkaline Phosphatase (38-126) U/L NT-Pro-B Natriuret Pep 4310 (<300) pg/mL Serum Total Protein (6.3-8.2) g/dL Albumin (3.5-5.0) g/dL Urine Color (Yellow) Urine Appearance (Clear) Urine pH (4.6-8.0) Ur Specific [place] (1.005-1.030) Urine Protein (Negative) Urine Glucose (UA) (Negative) mg/dL Urine Ketones (Negative) Urine Blood (Negative) Urine Nitrite (Negative) Urine Bilirubin (Negative) Urine Urobilinogen (0.2) mg/dL Ur Leukocyte Esterase (Negative) U Hyaline Cast (Auto) (0-2) /LPF Urine Microscopic RBC (0-5) /HPF Urine Microscopic WBC (0-5) /HPF Ur Epithelial Cells (None Seen) /HPF Urine Bacteria (None Seen) /HPF Urine Culture Reflexed (NO) Microbiology 01/21/23 19:19 Urine Culture - Preliminary Catherized NO GROWTH TO DATE - Radiology Impressions Radiology Exams & Impressions: Radiology Procedures Category Date Time Status ABDOMEN AND PELVIS W/0 CONTRAS [CT] Stat Exams 01/21/23 18:34 Completed Assessment/Plan (1) Anasarca Current Visit: Yes Status: Acute Assessment & Plan: Likely due to cirrhosis and hypoalbuminemia. Could be malignant ascites - pt is to have paracentesis when PT/PTT are improved (however, realizing they may be chronically elevated due to liver disease). Less likely nephrotic syndrome with trace protein on UA, but will check 24 hour urine for protein. Code(s): R60.1 - GENERALIZED EDEMA (2) Ascites Current Visit: Yes Status: Acute Qualifiers: Ascites type: other type Qualified Code(s): R18.8 - Other ascites Code(s): R18.8 - OTHER ASCITES (3) Urinary retention Current Visit: Yes Status: Acute Assessment & Plan: has freitas catheter in place currently. Had 175 mL urine out last night (14.6 mL /hr). Code(s): R33.9 - RETENTION OF URINE, UNSPECIFIED (4) Hypoalbuminemia Current Visit: No Status: Acute Assessment & Plan: albumin 2.4. Code(s): E88.09 - OTH DISORDERS OF PLASMA-PROTEIN METABOLISM, NEC (5) Acute on chronic renal failure Current Visit: Yes Status: Acute Qualifiers: Acute renal failure type: unspecified Chronic kidney disease stage: stage 3 (moderate) Chronic kidney disease stage 3 subtype: stage 3b (GFR 30-44) Qualified Code(s): N17.9 - Acute kidney failure, unspecified; N18.32 - Chronic kidney disease, stage 3b Assessment & Plan: eGFR usually 30-45. I have consulted nephrology as his edema/ascites is so pronounced. He likely needs albumin. Code(s): N17.9 - ACUTE KIDNEY FAILURE, UNSPECIFIED; N18.9 - CHRONIC KIDNEY DISEASE, UNSPECIFIED
[2023-01-22] MEDS ORDERED: NORCO 5/325 MG PO PRN (09:26)
[2023-01-22] MEDS ORDERED: NON-FORMULARY ITEM (Amlodipine Besylate [Norvasc] 10 MG Tablet) PO SCH (10:00)
[2023-01-22] MEDS ORDERED: NORVASC 5 MG PO SCH (10:00)
[2023-01-22] MEDS ORDERED: ENOXAPARIN SODIUM SQ SCH (10:00)
[2023-01-22] MEDS ORDERED: Flomax 0.4 MG PO SCH (10:00)
[2023-01-22 11:25] VITALS: BP 87/52; PULSE 90
[2023-01-22] MEDS ORDERED: AlbuRx 25% 50ML VIAL*** 50 ML IV ONE (13:15)
[2023-01-22 14:12] LABS: Absolute Neutrophil Ct (ANC) 6.85 x10^3/uL (1.4-6.9); BASOPHIL % 0.5 % (0.0-0.4); Basophil (Absolute #) 0.05 x10^3/uL (0-0.4); Eosinophil % 1.6 % (0.00-5.0); Eosinophil (Absolute #) 0.15 x10^3/uL (0-0.5); Hematocrit 32.6 % (42-50); Hemoglobin 10.9 g/dL (12.5-18.0); IMMATURE GRAN # 0.01 x10^3u/L (0.00-0.03); IMMATURE GRAN % 0.1 % (0.00-0.4); Lymphocyte (Absolute #) 1.11 x10^3/uL (1.0-4.6); Lymphocytes % 11.9 % (24.0-44.0); Mean Cell Volume 100.3 fL (78-100); Mean Corpuscular Hemoglobin 33.5 pg (26-32); Mean Corpuscular Hgb Concent. 33.4 g/dL (32-36); Monocyte (Absolute #) 1.19 x10^3/uL (0.0-1.3); Monocytes % 12.7 % (0.0-12.0); Neutrophil % 73.2 % (36.0-66.0); Platelet Count 185 x10^3/uL (150-450); Red Blood Count 3.25 x10^6/uL (4.1-5.6); Red Cell Distribution Width 15.1 % (11.5-14.0); White Blood Count 9.4 x10^3/uL (4.0-10.5)
[2023-01-22 14:36] LABS: ALBUMIN 2.3 g/dL (3.5-5.0); ANION GAP 11.9 MEQ/L (5-15); BILIRUBIN,TOTAL 1.1 mg/dL (0.2-1.3); Calcium 7.9 mg/dL (8.4-10.2); Creatinine 1 3.58 mg/dL (0.66-1.25); EST GLOMERULAR FILTRATION RATE 17.7 ML/MIN; Potassium 4.4 mmol/L (3.5-5.1); Total Protein 5.4 g/dL (6.3-8.2)
[2023-01-22] MEDS ORDERED: BUMEX 1 MG IV SCH (22:00)
[2023-01-22] MEDS ORDERED: NON-FORMULARY ITEM (Atorvastatin Calcium 10 MG Tablet) PO SCH (22:00)
[2023-01-22] MEDS ORDERED: NON-FORMULARY ITEM (Melatonin [Melatonin] 10 MG Tablet) PO SCH (22:00)
[2023-01-22] MEDS ORDERED: Zocor 10MG PO SCH ×2 (22:00)
--- NOTE | 2023-01-23 07:54 | PCM.DS ---
Discharge Summary Date of Admission: 01/21/23 20:58 Admitting Physician: SHIRLEY HSIEH Consults: Consults on Case 01/22/23 10:00 Consult Nephrology ROUTINE Primary Care Provider: KELECHI LIM Allergies Allergies adhesive tape Allergy (Verified 01/21/23 17:26) solifenacin [From Vesicare] Allergy (Verified 01/21/23 17:26) Hospital Summary - Hospital Course Hospital Course: is a 77 year old male pt of mine from [facility] who was admitted through ER with anasarca and urinary retention. He was found on CT abd/pelvis to have cirrhosis of the liver with ascites and is supposed to have an u/s eileen ded paracentesis; however his PT is elevated so this has been postponed. He has been having increased LE edema including some penile edema. In the office, we tried lasix and bumex without relief, and he was referred to cardiology and nephrology. Echo in Jul 2022 with EF 61%. At baseline, he has s tage 3 kidney disease, but today his eGFR is 17.2. His CT abd/pelvis showed continued cirrhosis (compared with Sep 2022) and new/worsening ascites and anasarca. He was noted to have cirrhosis previously and has been seeing GI in [place]. Pt had R inguinal hernia repair last month, and has been recovering at a rehab facility. He had been to ER yesterday morning for increased edema; workup largeley negative and discharged back to rehab facility to continue outpatient workup. He was unable to urinate after that; facility unable to pass freitas catheter, so pt returned to ER. Nephrology was consulted, and Dr. Moreno arranged for pt to be transferred to [facility] for further evaluation and treatment. - Vitals & Intake/Output Vital Signs: Vital Signs Temperature 97.9 F 01/22/23 11:24 Pulse Rate 90 01/22/23 11:24 Respiratory Rate 16 01/22/23 11:24 Blood Pressure 87/52 01/22/23 11:24 O2 Sat by Pulse Oximetry 96 01/22/23 11:24 Intake & Output: Intake & Output 01/20/23 01/21/23 01/22/23 01/23/23 11:59 11:59 11:59 11:59 Intake Total 480 340 Output Total 175 Balance 305 340 Weight 89.7 kg - Lab Result Diagrams: 01/22/23 14:05 01/22/23 14:05 Lab Results-Last 24 Hrs: Lab Results-Last 24 Hours 01/22/23 01/22/23 01/22/23 Range/Units 07:20 14:05 14:05 WBC 9.4 (4.0-10.5) x10^3/uL RBC 3.25 L (4.1-5.6) x10^6/uL Hgb 10.9 L (12.5-18.0) g/dL Hct 32.6 L (42-50) % MCV 100.3 H (78-100) fL MCH 33.5 H (26-32) pg MCHC 33.4 (32-36) g/dL RDW 15.1 H (11.5-14.0) % Plt Count 185 (150-450) x10^3/uL MPV 10.0 (7.5-11.0) fL Gran % 73.2 H (36.0-66.0) % Immature Gran % (Auto) 0.1 (0.00-0.4) % Nucleat RBC Rel Count 0.0 (0.00-0.1) % Eos # (Auto) 0.15 (0-0.5) x10^3/uL Immature Gran # (Auto) 0.01 (0.00-0.03) x10^3u/L Absolute Lymphs (auto) 1.11 (1.0-4.6) x10^3/uL Absolute Monos (auto) 1.19 (0.0-1.3) x10^3/uL Absolute Nucleated RBC 0.00 (0.00-0.01) x10^3u/L Lymphocytes % 11.9 L (24.0-44.0) % Monocytes % 12.7 H (0.0-12.0) % Eosinophils % 1.6 (0.00-5.0) % Basophils % 0.5 (0.0-0.4) % Absolute Granulocytes 6.85 (1.4-6.9) x10^3/uL Basophils # 0.05 (0-0.4) x10^3/uL PT 16.1 H (9.4-12.5) SECONDS INR 1.52 (0.8-3.0) Sodium 139 (137-145) mmol/L Potassium 4.4 (3.5-5.1) mmol/L Chloride 104 (98-107) mmol/L Carbon Dioxide 27 (22-30) mmol/L Anion Gap 11.9 (5-15) MEQ/L BUN 55 H (9-20) mg/dL Creatinine 3.58 H (0.66-1.25) mg/dL Estimated GFR 17.7 ML/MIN Glucose 136 H (74-106) mg/dL Calcium 7.9 L (8.4-10.2) mg/dL Total Bilirubin 1.10 (0.2-1.3) mg/dL AST 23 (17-59) U/L ALT 11 (0-50) U/L Alkaline Phosphatase 87 (38-126) U/L Troponin I (0.000-0.034) ng/mL Serum Total Protein 5.4 L (6.3-8.2) g/dL Albumin 2.3 L (3.5-5.0) g/dL 01/22/23 Range/Units 14:05 WBC (4.0-10.5) x10^3/uL RBC (4.1-5.6) x10^6/uL Hgb (12.5-18.0) g/dL Hct (42-50) % MCV (78-100) fL MCH (26-32) pg MCHC (32-36) g/dL RDW (11.5-14.0) % Plt Count (150-450) x10^3/uL MPV (7.5-11.0) fL Gran % (36.0-66.0) % Immature Gran % (Auto) (0.00-0.4) % Nucleat RBC Rel Count (0.00-0.1) % Eos # (Auto) (0-0.5) x10^3/uL Immature Gran # (Auto) (0.00-0.03) x10^3u/L Absolute Lymphs (auto) (1.0-4.6) x10^3/uL Absolute Monos (auto) (0.0-1.3) x10^3/uL Absolute Nucleated RBC (0.00-0.01) x10^3u/L Lymphocytes % (24.0-44.0) % Monocytes % (0.0-12.0) % Eosinophils % (0.00-5.0) % Basophils % (0.0-0.4) % Absolute Granulocytes (1.4-6.9) x10^3/uL Basophils # (0-0.4) x10^3/uL PT (9.4-12.5) SECONDS INR (0.8-3.0) Sodium (137-145) mmol/L Potassium (3.5-5.1) mmol/L Chloride (98-107) mmol/L Carbon Dioxide (22-30) mmol/L Anion Gap (5-15) MEQ/L BUN (9-20) mg/dL Creatinine (0.66-1.25) mg/dL Estimated GFR ML/MIN Glucose (74-106) mg/dL Calcium (8.4-10.2) mg/dL Total Bilirubin (0.2-1.3) mg/dL AST (17-59) U/L ALT (0-50) U/L Alkaline Phosphatase (38-126) U/L Troponin I 0.013 (0.000-0.034) ng/mL Serum Total Protein (6.3-8.2) g/dL Albumin (3.5-5.0) g/dL Micro Results-Entire Visit: Microbiology 01/21/23 19:19 Urine Culture - Preliminary Catherized GRAM NEGATIVE ID AND SENSITIVITY PENDING - Radiology Exams Ordered Rad Exams-Entire Visit: Radiology Procedures Category Date Time Status ABDOMEN AND PELVIS W/0 CONTRAS [CT] Stat Exams 01/21/23 18:34 Completed ECHO W/2D AND DOPPLER [US] Routine Exams 01/22/23 12:24 Taken - Procedures and Test Procedures and Tests throughout Hospitalization: Therapy Orders & Screens 01/22/23 14:14 EKG STAT Comment: Diagnosis: Intra-abdominal ascites Discharge Exam General Appearance: no apparent distress, alert, other (exam was done 01/22/23 at approx 0820) Neurologic Exam: oriented x 3, cooperative Eye Exam: eyes nml inspection Ears, Nose, Throat Exam: moist mucous membranes Neck Exam: normal inspection Respiratory Exam: normal breath sounds, lungs clear, No crackles/rales, No rhonchi, No wheezing Cardiovascular Exam: regular rate/rhythm, normal heart sounds, No murmur Gastrointestinal/Abdomen Exam: soft, normal bowel sounds, distention (with fluid wave), other (dependent areas with 2+ pitting edema), No tenderness Male Genitalia Exam: other (penis with mild edema and minimal red blood residue) Back Exam: normal inspection, No rash Extremity Exam: pedal edema, swelling (2+ LE edema throughout) Skin Exam: normal color, warm, dry, No rash Final Diagnosis/Problem List - Final Discharge Diagnosis/Problem (1) Anasarca Status: Acute Assessment & Plan: With cirrhosis and renal failure. Transfer to [facility] for further w/u and treatment. Code(s): R60.1 - GENERALIZED EDEMA (2) Ascites Status: Acute Code(s): R18.8 - OTHER ASCITES (3) Urinary retention Status: Acute Code(s): R33.9 - RETENTION OF URINE, UNSPECIFIED (4) Hypoalbuminemia Status: Acute Code(s): E88.09 - OTH DISORDERS OF PLASMA-PROTEIN METABOLISM, NEC (5) Acute on chronic renal failure Status: Acute Code(s): N17.9 - ACUTE KIDNEY FAILURE, UNSPECIFIED; N18.9 - CHRONIC KIDNEY DISEASE, UNSPECIFIED - Discharge Disposition: DC TO [facility] Condition: Fair Prescriptions: No Action Tamsulosin HCl 0.4 mg [Flomax 0.4 MG] 0.4 mg PO DAILY Lisinopril 5 mg [Zestril 5 MG] 5 mg PO DAILY Amlodipine Besylate [Norvasc] 10 mg PO DAILY Apixaban [Eliquis 5 mg Tablet] 5 mg PO BID Atorvastatin Calcium [Lipitor] 10 mg PO HS Bumetanide 1 mg [Bumex 1 mg] 2 mg PO DAILY Melatonin 10 mg PO HS Hydrocodone/Acetaminophen [Hydrocodone-Acetamin 5-325 mg] 1 tab PO Q4HPRN PRN PRN Reason: Pain Follow up with: KELECHI LIM [Primary Care Provider] - Follow up/PCP as directed
== END 2023-01-22 14:45 | disposition short-term general hospital (02) ==
LOC: ED 17:17 → MED SURG 20:58
PROVIDERS: ADMIT General Practice; ATTEND Family Medicine
DX: R60.1 Generalized edema (principal); R18.8 Other ascites; R33.9 Retention of urine, unspecified; E88.09 Other disorders of plasma-protein metabolism, not elsewhere classified; I11.0 Hypertensive heart disease with heart failure; I50.9 Heart failure, unspecified; N18.32 Chronic kidney disease, stage 3b; I48.91 Unspecified atrial fibrillation; K74.60 Unspecified cirrhosis of liver; Z85.46 Personal history of malignant neoplasm of prostate; Z79.01 Long term (current) use of anticoagulants; Z79.899 Other long term (current) drug therapy; Z20.828 Contact with and (suspected) exposure to other viral communicable diseases
CPT/HCPCS: 36000; 36415; 74176; 80053; 81001; 83880; 84484; 85025; 85610; 87077; 87086; 87186; 93306; 99284; G0378; J1650; P9047; A9270-GY

== ENCOUNTER 2023-02-21 13:50 | Observation (INO) | payer MEDICARE, OTHER ==
[2023-02-21] MEDS ORDERED: XYLOCAINE 1% HCL 20 ML MDV IJ ONE (13:51)
[2023-02-21 15:07] LABS: INFLUENZA A NEGATIVE (NEGATIVE); INFLUENZA B NEGATIVE (NEGATIVE); RESPIRATORY SYNCTIAL VIRUS NEGATIVE (NEGATIVE); SARS-CoV-2 Xpert Express NEGATIVE (NEGATIVE)
[2023-02-21] MEDS ORDERED: NORCO 5/325 MG PO PRN (15:12)
[2023-02-21 16:11] LABS: Hemoglobin 10.6 g/dL (12.5-18.0); Mean Cell Volume 99.7 fL (78-100); Mean Corpuscular Hemoglobin 34.1 pg (26-32); Mean Corpuscular Hgb Concent. 34.2 g/dL (32-36); Mean Platelet Volume 10.7 fL (7.5-11.0); Platelet Count 197 x10^3/uL (150-450); Red Blood Count 3.11 x10^6/uL (4.1-5.6); Red Cell Distribution Width 17.1 % (11.5-14.0)
[2023-02-21 16:46] LABS: ANION GAP 13.6 MEQ/L (5-15); Calcium 7.9 mg/dL (8.4-10.2); Creatinine 1 3.3 mg/dL (0.66-1.25); EST GLOMERULAR FILTRATION RATE 19.4 ML/MIN; PREALBUMIN 6.1 mg/dL (17.6-36.0); Potassium 3.7 mmol/L (3.5-5.1)
[2023-02-21] MEDS ORDERED: MELATONIN PO SCH (22:00)
[2023-02-21] MEDS ORDERED: NON-FORMULARY ITEM (Melatonin [Melatonin] 10 MG Tablet) PO SCH (22:00)
[2023-02-22] MEDS ORDERED: Sodium Chloride 0.9% 500 ML 500 ML IV ONE (05:10)
[2023-02-22 09:06] LABS: INR 1.31 (0.8-3.0)
[2023-02-22] MEDS ORDERED: SPIRONOLACTONE 100 MG PO SCH (10:00)
[2023-02-22] MEDS ORDERED: BUMEX 1 MG PO SCH (10:00)
[2023-02-22] MEDS ORDERED: NON-FORMULARY ITEM (Amlodipine Besylate [Norvasc] 10 MG Tablet) PO SCH (10:00)
[2023-02-22] MEDS ORDERED: Aldactone 25 MG PO SCH (10:00)
[2023-02-22] MEDS ORDERED: Flomax 0.4 MG PO SCH (10:00)
[2023-02-22] MEDS ORDERED: NORVASC 5 MG PO SCH (10:00)
--- NOTE | 2023-02-22 11:10 | XRAY ---
Indication: Ascites. Informed consent obtained. Patient placed supine. Initial abdominal ultrasound performed for localization. Left lower quadrant abdominal wall was prepped and draped in sterile fashion. 1% lidocaine plain was used for local anesthesia. Tiny skin incision made. 5 [place] [employer] paracentesis needle/catheter was then percutaneously inserted. Once fluid was aspirating, the outer catheter was then advanced with the inner needle removed. Catheter was connected to a Vacutainer. Approximately 7.2 L of fabián color transudative fluid aspirated and was disposed of properly. Repeat sonogram demonstrates marked improvement with small residual. Catheter removed. Hemostasis achieved using digital pressure over the puncture site. Steri-Strips with Band-Aid applied over the puncture site. Patient discharged in good condition. Impression: Technically successful ultrasound guided abdominal paracentesis for therapeutic purpose. No immediate complications or blood loss.
[2023-02-22] MEDS ORDERED: AlbuRx 25% 50ML VIAL*** 50 ML IV SCH (12:00)
[2023-02-22 16:00] VITALS: BP 91/46; PULSE 60; O2SAT 94
--- NOTE | 2023-03-10 23:45 | PCM.SSS ---
History of Present Illness - Chief Complaint Chief Complaint: Ascites, weight gain Date: 02/22/23 History of Present Illness: is a 77 year old male. Pt. was admitted to hospital for infusion of FFP, pt. has had increasing weight gain and worsening of ascites from end stage liver cirrhosis, as such the patient was on eliquis and in need of a therapeutic tap. Pt. PTT remained to high after several days of holding the eliquis because of poor liver function related to his cirrhosis. Pt. in dire need of the therapeutic tap was admitted so he could recieve FFP to improve his PTT and quickly be able to have his abdomen drained of ascitic fluid. - Review of Systems Constitutional: No Fever, No Chills Eyes: No Symptoms Ears, Nose, & Throat: No Symptoms Respiratory: No Cough, No Short Of Breath Cardiac: No Chest Pain, No Edema, No Syncope Abdominal/Gastrointestinal: Abdominal Pain (ascites), No Nausea, No Vomiting, No Diarrhea Genitourinary Symptoms: No Dysuria Musculoskeletal: No Back Pain, No Neck Pain Skin: No Rash Neurological: No Dizziness, No Focal Weakness, No Sensory Changes Psychological: No Symptoms Endocrine: No Symptoms Hematologic/Lymphatic: No Symptoms Immunological/Allergic: No Symptoms Medications & Allergies Home Medications: Home Medication List Amlodipine Besylate [Norvasc] 10 mg PO DAILY 11/29/22 [History Confirmed 02/21/23] Apixaban [Eliquis 5 mg Tablet] 5 mg PO BID 11/29/22 [History Confirmed 02/21/23] Bumetanide 1 mg [Bumex 1 mg] 2 mg PO DAILY 11/29/22 [History Confirmed 02/21/23] Tamsulosin HCl 0.4 mg [Flomax 0.4 MG] 0.4 mg PO DAILY 11/29/22 [History Confirmed 02/21/23] Hydrocodone/Acetaminophen [Hydrocodone-Acetamin 5-325 mg] 1 tab PO Q4HPRN PRN 01/21/23 [History Confirmed 02/21/23] Melatonin 10 mg PO HS 01/21/23 [History Confirmed 02/21/23] Spironolactone [Aldactone] 100 mg PO DAILY 02/21/23 [History Confirmed 02/21/23] Allergies/Adverse Reactions: Allergies Allergy/AdvReac Type Severity Reaction Status Date / Time adhesive tape Allergy Verified 02/27/23 11:30 solifenacin [From Vesicare] Allergy Verified 02/27/23 11:30 - Past Medical History Past Medical History: Yes Neurological History: No Pertinent History ENT History: No Pertinent History Cardiac History: Arrhythmia, Congestive Heart Failure, Hypertension Respiratory History: CHF, Other Endocrine Medical History: No Pertinent History, Liver Disease Musculoskelatal History: Other GI Medical History: Cirrhosis History: Renal Disease Pyscho-Social History: No Pertinent History Male Reproductive Disorders: Prostate Cancer Comment: R KNEE ARTHROSCOPY, A-FIB - Past Surgical History Past Surgical History: Yes Neuro Surgical History: No Pertinent History Cardiac History: Pacemaker Respiratory Surgery: No Pertinent History GI Surgical History: Appendectomy Genitourinary Surgical Hx: No Pertinent History Musculskeletal Surgical Hx: No Pertinent History Male Surgical History: Prostate Surgery - Social History Smoking Status: Former smoker How long have you smoked: 50 years Exposure to second hand smoke: No Alcohol: None Drug Use: none Significant Family History: no pertinent family hx - Physical Exam General Appearance: no apparent distress, alert Neurologic Exam: alert, oriented x 3, cooperative, normal mood/affect, nml cerebellar function, nml station & gait, sensation nml, No motor deficits Eye Exam: PERRL/EOMI, eyes nml inspection Ears, Nose, Throat Exam: normal ENT inspection, TMs normal, pharynx normal, moist mucous membranes Neck Exam: normal inspection, non-tender, supple, full range of motion Respiratory Exam: normal breath sounds, lungs clear, No respiratory distress Cardiovascular Exam: regular rate/rhythm, normal heart sounds, normal peripheral pulses Gastrointestinal/Abdomen Exam: soft, normal bowel sounds, tenderness, distention, other (large ampount of ascites), No mass Back Exam: normal inspection, normal range of motion, No CVA tenderness, No vertebral tenderness Extremity Exam: normal inspection, normal range of motion, pelvis stable Skin Exam: normal color, warm, dry, No rash Lymphatic Exam: No adenopathy Assessment/Plan (1) Cirrhosis Status: Acute Assessment & Plan: peritoneal tap (2) Ascites Status: Acute Qualifiers: Ascites type: other type Qualified Code(s): R18.8 - Other ascites Code(s): R18.8 - OTHER ASCITES Hospital Summary - Hospital Course Hospital Course: Pt. admitted for observation, pt. recieved a unit of FFP in hospital and 2 hours later underwent a successful tap of over 7 L, albumin was infused and pt. was sent back to [facility]. - Vitals & Intake/Output Vital Signs: Vital Signs Temperature 97.9 F 02/22/23 16:00 Pulse Rate 60 02/22/23 16:00 Respiratory Rate 16 02/22/23 16:00 Blood Pressure 91/46 02/22/23 16:00 O2 Sat by Pulse Oximetry 94 L 02/22/23 16:00 - Lab Result Diagrams: 02/21/23 07:00 02/21/23 07:00 - Discharge Discharge Date: 02/22/23 Disposition: DC TO ANY "OTHER" SENIOR CARE Condition: Stable Prescriptions: No Action Tamsulosin HCl 0.4 mg [Flomax 0.4 MG] 0.4 mg PO DAILY Amlodipine Besylate [Norvasc] 10 mg PO DAILY Apixaban [Eliquis 5 mg Tablet] 5 mg PO BID Bumetanide 1 mg [Bumex 1 mg] 2 mg PO DAILY Melatonin 10 mg PO HS Hydrocodone/Acetaminophen [Hydrocodone-Acetamin 5-325 mg] 1 tab PO Q4HPRN PRN PRN Reason: Pain Spironolactone [Aldactone] 100 mg PO DAILY Follow up with: SAM KINSEY OF [Primary Care Provider] -
== END 2023-02-22 16:10 ==
LOC: MED SURG 13:50
PROVIDERS: ADMIT Family Medicine; ATTEND Family Medicine
DX: K74.60 Unspecified cirrhosis of liver (principal); R18.8 Other ascites; R63.5 Abnormal weight gain; I11.0 Hypertensive heart disease with heart failure; I50.9 Heart failure, unspecified; Z79.899 Other long term (current) drug therapy; Z79.01 Long term (current) use of anticoagulants; Z20.828 Contact with and (suspected) exposure to other viral communicable diseases; Z85.46 Personal history of malignant neoplasm of prostate
CPT/HCPCS: 0241U; 36415; 36430; 49083; 80048; 84134; 85027; 85610; 86927; G0378; G0379; P9017; P9047; P9604; A9270-GY